=== PATIENT | female | born 1990 | race Caucasian/White ===

== ENCOUNTER 2018-10-06 10:33 | Inpatient (IN) | payer OTHER ==
[2018-10-06] MEDS ORDERED: DINOPROSTONE 10 MG VAGINAL SUPPOSITORY VG ONE (11:00)
[2018-10-06 11:44] VITALS: BMI 30.9
[2018-10-06 13:05] LABS: BASO % 0.4 % (0-2.0); EOS % 0.4 % (0-4.5); HEMATOCRIT 37.8 % (32.4-45.2); HEMOGLOBIN 12.8 GM/dL (10.7-15.3); LYMPH % 27.5 % (8-40); MCH 29.3 pg (25.7-33.7); MCHC 33.8 g/dl (32.0-36.0); MEAN CELL VOLUME 86.6 fl (80-96); MONO % 5.5 % (3.8-10.2); NEUT % 66.2 % (42.8-82.8); PLATELET COUNT 178 K/MM3 (134-434); RBC 4.36 M/mm3 (3.60-5.2); RDW 13.6 % (11.6-15.6); WHITE BLOOD COUNT 7.8 K/mm3 (4.0-10.0)
[2018-10-06 13:21] LABS: INR 0.92 (0.83-1.09); PROTHROMBIN TIME (PATIENT) 10.9 SEC (9.7-13.0)
[2018-10-06 13:24] LABS: ANION GAP 7 MMOL/L (8-16); BLOOD UREA NITROGEN 7 mg/dL (7-18); CALCIUM 9.5 mg/dL (8.5-10.1); CHLORIDE 106 mmol/L (98-107); CO2 23 mmol/L (21-32); CREATININE 0.4 mg/dL (0.55-1.3); GLUCOSE,RANDOM 71 mg/dL (74-106); POTASSIUM 4.1 mmol/L (3.5-5.1); SODIUM 137 mmol/L (136-145)
[2018-10-06 13:24] LABS: ACTIVATED PTT 29.3 SECONDS (25.2-36.5)
[2018-10-06] MEDS ORDERED: PROMETHAZINE HCL 25 MG/1 ML VIAL IVPUSH ONE (14:03)
[2018-10-06] MEDS ORDERED: BUTORPHANOL TARTRATE 2 MG/ML VIAL IVPUSH ONE (14:15)
--- NOTE | 2018-10-06 15:56 | HP ---
Past Medical History - Primary Care Physician PCP:: Octaviano Hardin - Admission Chief Complaint: 41 weeks, oligohydramnions ,for cervidil induction History of Present Illness: 28 yo f g 1p0 41 weeks, referred by MFM for induction of labor for post date and oligo, risks of induction has explained with patient, ulternatives explained History Source: Patient Limitations to Obtaining History: No Limitations - Past Medical History ...: 1 ...Para: 0 ...LMP: 12/21/17 ... Weeks Gestation by Dates: 41.2 ...EDC by Dates: 09/27/18 ...EDC by Sono: 10/02/18 - Past Surgical History Hx Myomectomy: No Hx Transabdominal Cerclage: No - Smoking History Smoking history: Never smoked - Alcohol/Substance Use Hx Alcohol Use: No - Social History Usual Living Arrangement: Yes: With Spouse History of Recent Travel: No Home Medications - Allergies Allergies/Adverse Reactions: Allergies Allergy/AdvReac Type Severity Reaction Status Date / Time No Known Allergies Allergy Verified 10/06/18 11:17 - Home Medications Home Medications: Ambulatory Orders Iron 1 tab PO DAILY 10/06/18 Vitamins (Sjr) - 1 tab PO DAILY 10/06/18 Review of Systems - Review of Systems Constitutional: reports: No Symptoms Eyes: reports: No Symptoms HENT: reports: No Symptoms Neck: reports: No Symptoms Cardiovascular: reports: No Symptoms Respiratory: reports: No Symptoms Gastrointestinal: reports: No Symptoms Genitourinary: reports: No Symptoms Breasts: reports: No Symptoms Reported Musculoskeletal: reports: No Symptoms Integumentary: reports: No Symptoms Neurological: reports: No Symptoms Endocrine: reports: No Symptoms Hematology/Lymphatic: reports: No Symptoms Psychiatric: reports: No Symptoms Physical Exam - Maternity Vital Signs: Vital Signs Temperature 98.4 F 10/06/18 14:00 Pulse Rate 93 H 10/06/18 15:00 Respiratory Rate 20 10/06/18 15:00 Blood Pressure 136/82 10/06/18 15:00 O2 Sat by Pulse Oximetry (%) Constitutional: Yes: Well Nourished, No Distress, Calm Eyes: Yes: WNL, Conjunctiva Clear, EOM Intact HENT: Yes: WNL, Atraumatic, Normocephalic Neck: Yes: WNL, Supple, Trachea Midline Cardiovascular: Yes: WNL, Regular Rate and Rhythm Breast(s): Yes: WNL - Abdominal Exam/OB Fundal Height: 38 Number of Fetuses: Single Presentation: Vertex Contractions: No Intensity: Unaware Monitor Mode: External Heart Rate Location: [facility] Category: I Accelerations: Uniform Decelerations: None - Vaginal Exam/OB Vaginal Bleediing: No Speculum Exam: No Dilatation (cm): 0 Effacement (%): 0 Amniotic Membrane Status: Intact Presentation: Vertex/Position Station: -4 - Physical Exam Musculoskeletal: Yes: WNL Extremities: Yes: WNL Edema: Yes Edema: LLE: Trace, RLE: Trace Deep Tendon Reflex Grade: Normal +2 ...Motor Strength: WNL Psychiatric: Yes: WNL - Labs Lab Results: CBC, BMP 10/06/18 12:25 10/06/18 11:11 Hemorrhage Risk Assessment - Risk Factors Medium Risk Factors: Yes: None High Risk Factors: Yes: None Risk Score: 1 Risk Level: Medium Risk Problem List - Problems (1) Post term at 41 weeks gestation Code(s): O48.0 - POST-TERM ; Z3A.41 - 41 WEEKS GESTATION OF (2) Oligohydramnios Code(s): O41.00X0 - OLIGOHYDRAMNIOS, UNSP TRIMESTER, NOT APPLICABLE OR UNSP Qualifiers: Fetus number: single or unspecified fetus Trimester: third trimester Qualified Code(s): O41.03X0 - Oligohydramnios, third trimester, not applicable or unspecified Assessment/Plan cervidil induction, risks explained , cervidil inserted at 12pm
[2018-10-06] MEDS: DEXTROSE 5%-LACTATED RINGERS 1,000 ML IV SCH ×2 (18:30→22:30)
--- NOTE | 2018-10-07 00:37 | PN ---
Progress Note (short form) - Note Progress Note: cx 2 cm 70 vx -3 , mi, fhr cat 1, regular contraction, cervidil removed Problem List - Problems (1) Post term at 41 weeks gestation Code(s): O48.0 - POST-TERM ; Z3A.41 - 41 WEEKS GESTATION OF (2) Oligohydramnios Code(s): O41.00X0 - OLIGOHYDRAMNIOS, UNSP TRIMESTER, NOT APPLICABLE OR UNSP Qualifiers: Fetus number: single or unspecified fetus Trimester: third trimester Qualified Code(s): O41.03X0 - Oligohydramnios, third trimester, not applicable or unspecified
[2018-10-07] MEDS ORDERED: OXYTOCIN 30 UNITS in 0.9% NS 30 UNIT/500 ML INFUS.BAG IVPB SCH (00:45)
--- NOTE | 2018-10-07 04:53 | PN ---
Progress Note (short form) - Note Progress Note: cx 2 cm 50 vx -3, mi fhr cat 1, irregular contraction , will start pitocin now Problem List - Problems (1) Post term at 41 weeks gestation Code(s): O48.0 - POST-TERM ; Z3A.41 - 41 WEEKS GESTATION OF (2) Oligohydramnios Code(s): O41.00X0 - OLIGOHYDRAMNIOS, UNSP TRIMESTER, NOT APPLICABLE OR UNSP Qualifiers: Fetus number: single or unspecified fetus Trimester: third trimester Qualified Code(s): O41.03X0 - Oligohydramnios, third trimester, not applicable or unspecified
[2018-10-07] MEDS ORDERED: ELECTROLYTE-148 SOLN 500 ML IV ONE (06:40)
[2018-10-07] MEDS ORDERED: CITRIC ACID/SODIUM CITRATE 30 ML UNIT-DOSE CUP PO ONE ×2 (06:45→07:37)
[2018-10-07] MEDS ORDERED: ELECTROLYTE-148 SOLN 1,000 ML IV SCH (07:10)
--- NOTE | 2018-10-07 07:37 | PN ---
Progress Note (short form) - Note Progress Note: cx 2 cm 70 vx -3,no descent, tachy , advised c/s, risks discussed , ulternatives of waiting and cont, induction discussed Problem List - Problems (1) Post term at 41 weeks gestation Code(s): O48.0 - POST-TERM ; Z3A.41 - 41 WEEKS GESTATION OF (2) Oligohydramnios Code(s): O41.00X0 - OLIGOHYDRAMNIOS, UNSP TRIMESTER, NOT APPLICABLE OR UNSP Qualifiers: Fetus number: single or unspecified fetus Trimester: third trimester Qualified Code(s): O41.03X0 - Oligohydramnios, third trimester, not applicable or unspecified
[2018-10-07] MEDS ORDERED: OXYTOCIN 20 UNITS in 0.9% NS 20 UNIT/1,000 ML INFUS.BAG IV ONE ×2 (08:19→09:59)
[2018-10-07] MEDS ORDERED: morphine SULFATE/Preservative Free 0.5 MG/ML (1cc Syringe) ONE (08:25)
[2018-10-07] MEDS ORDERED: ONDANSETRON 4 MG/2 ML VIAL IVPUSH PRN (08:37)
[2018-10-07] MEDS ORDERED: ceFAZolin SODIUM 1 GM VIAL ONE (09:26)
[2018-10-07] MEDS ORDERED: IBUPROFEN 800 MG/8 ML IJ IVPB PRN (09:30)
[2018-10-07] MEDS ORDERED: oxyCODONE HCL 5 MG TABLET PO PRN ×2 (09:30)
[2018-10-07] MEDS ORDERED: OXYTOCIN 20 UNITS in 0.9% NS 20 UNIT/1,000 ML INFUS.BAG IV SCH (09:30)
[2018-10-07] MEDS ORDERED: diphenhydrAMINE HCL 25 MG CAPSULE (FP) PO PRN (09:30)
[2018-10-07] MEDS ORDERED: METHYLERGONOVINE MALEATE 0.2 MG/1 ML AMP IM PRN (09:30)
[2018-10-07] MEDS ORDERED: BENZOCAINE 28 GM HEMORRHOIDAL OINTMENT PR PRN (09:30)
[2018-10-07] MEDS ORDERED: WITCH HAZEL 50% (TUCKS) 40 PAD/JAR PAD TP PRN (09:30)
[2018-10-07] MEDS ORDERED: BENZOCAINE 20% 57 GM BOTTLE TP PRN (09:30)
--- NOTE | 2018-10-07 11:10 | OP ---
DATE OF OPERATION: 10/07/2018 PREOPERATIVE DIAGNOSES: , 41 weeks; oligohydramnios; and induction of labor; failure to dilate; and tachycardia. POSTOPERATIVE DIAGNOSES: , 41 weeks; oligohydramnios; and induction of labor; failure to dilate; and tachycardia. PROCEDURE: Primary low segment transverse section. SURGEON: Enedelia Cooper MD PC MAINTENANCE TECHNICIAN: ANESTHESIA: Spinal. ANESTHESIOLOGIST: Tevin Menchaca MD ESTIMATED BLOOD LOSS: 500 mL. DESCRIPTION OF OPERATION: Patient was taken to the operating room. Under adequate spinal anesthesia, abdomen and perineum were prepped and draped. Pfannenstiel abdominal skin incision was made. Abdominal wall was cut layer by layer. Anterior peritoneum was exposed and incised. Upon entering the abdominal cavity, lower uterine segment was identified and uterovesical fold of peritoneum established. Bladder was pushed down. Then, with the lower blade of the Jorden retractor in the pelvis, a low transverse uterine incision was made. Incision extended laterally. Amniotic sac was entered. Light meconium amniotic fluid noticed. Head delivered. Nasopharynx was suctioned, and a live baby was delivered without any difficulty. Placenta was delivered manually. Uterine cavity was cleaned of all remaining tissue. Uterine incision was closed in 2 layers, first layer with 0 Biosyn continuous suture, the second layer with 0 Biosyn imbricating the first layer. Bladder flap was closed with 0 Biosyn continuous suture. Both tubes and ovaries were checked, were normal. No active bleeding was seen. All the lap pads, sponge, and instrument counts were correct. Then, peritoneum was closed with 0 Biosyn continuous suture. Muscles were brought together with interrupted sutures of 0 Biosyn. Fascia was closed with 0 Biosyn continuous suture, subcutaneous fat with interrupted suture of 0 Biosyn, and the skin was closed with 4-0 Biosyn subcuticular continuous suture. Patient tolerated the procedure well, left the OR in good condition. ENEDELIA COOPER M.D. /[id number]
[2018-10-07] MEDS: CEFAZOLIN 1 GM/D5W 1 GM/50 ML BAG IVPB SCH (17:11)
[2018-10-07] MEDS ORDERED: DEXTROSE 5%-LACTATED RINGERS 1,000 ML IV SCH (17:30)
[2018-10-08] MEDS: CEFAZOLIN 1 GM/D5W 1 GM/50 ML BAG IVPB SCH (01:18)
[2018-10-08 08:24] LABS: BASO % 0.3 % (0-2.0); EOS % 0.4 % (0-4.5); HEMATOCRIT 33.3 % (32.4-45.2); HEMOGLOBIN 11.3 GM/dL (10.7-15.3); LYMPH % 22.4 % (8-40); MCH 29.1 pg (25.7-33.7); MEAN CELL VOLUME 85.8 fl (80-96); MEAN PLT VOLUME 10.4 fl (7.5-11.1); MONO % 5.7 % (3.8-10.2); NEUT % 71.2 % (42.8-82.8); PLATELET COUNT 170 K/MM3 (134-434); RBC 3.88 M/mm3 (3.60-5.2); RDW 13.4 % (11.6-15.6); WHITE BLOOD COUNT 8.4 K/mm3 (4.0-10.0)
--- NOTE | 2018-10-08 08:41 | PN ---
Progress Note (short form) - Note Progress Note: Pt is POD1 s/p csection with spinal and intrathecal duramorph. Pt has not ambulated yet, but currently has no FERNANDO, no back pain, and incisional pain is well controlled. No apparent anesthetic issues/complications noted.
[2018-10-08] MEDS: ENOXAPARIN NA (PORCINE) 40 MG/0.4 ML DISP.SYRIN SQ SCH (09:22)
[2018-10-08] MEDS ORDERED: BISACODYL 10 MG SUPP.RECT RC PRN (09:30)
[2018-10-08] MEDS: SIMETHICONE 80 MG TAB.CHEW (FP) PO PRN ×2 (13:30→18:48)
[2018-10-08] MEDS: ACETAMINOPHEN 325 MG TABLET (FP) PO PRN ×2 (13:30→18:49)
[2018-10-08] MEDS: IBUPROFEN 600 MG TABLET (FP) PO PRN ×2 (13:30→18:48)
--- NOTE | 2018-10-08 16:54 | PN ---
Progress Note (short form) - Note Progress Note: pod 1, doing well, ambulating, no c/o CBC, BMP 10/08/18 07:20 10/06/18 11:11 Last Vital Signs Temp Pulse Resp BP Pulse Ox 98.4 F 92 H 20 106/64 100 10/08/18 08:01 10/08/18 08:01 10/08/18 09:00 10/08/18 08:01 10/07/18 21:00 abdomen soft, no distesion, no cva incision dry, clean no calf tenderness plan ambulate, advance diet pain management Problem List - Problems (1) Post term at 41 weeks gestation Code(s): O48.0 - POST-TERM ; Z3A.41 - 41 WEEKS GESTATION OF (2) Oligohydramnios Code(s): O41.00X0 - OLIGOHYDRAMNIOS, UNSP TRIMESTER, NOT APPLICABLE OR UNSP Qualifiers: Fetus number: single or unspecified fetus Trimester: third trimester Qualified Code(s): O41.03X0 - Oligohydramnios, third trimester, not applicable or unspecified
[2018-10-09] MEDS: IBUPROFEN 600 MG TABLET (FP) PO PRN ×4 (00:15→20:51)
[2018-10-09] MEDS: ACETAMINOPHEN 325 MG TABLET (FP) PO PRN ×4 (00:15→20:50)
[2018-10-09] MEDS: SIMETHICONE 80 MG TAB.CHEW (FP) PO PRN ×3 (00:15→20:50)
--- NOTE | 2018-10-09 07:56 | PN ---
Progress Note (short form) - Note Progress Note: pod 2, s/p c/s . doing well, ambulating, voids ok CBC, BMP 10/08/18 07:20 10/06/18 11:11 Last Vital Signs Temp Pulse Resp BP Pulse Ox 97.8 F 85 18 116/78 100 10/08/18 22:00 10/08/18 22:00 10/08/18 22:00 10/08/18 22:00 10/07/18 21:00 abdomen soft, no distension, no cva incision dry, clean no calf tenderness no excess vaginal bleeding plan ambulate , cbc Problem List - Problems (1) Post term at 41 weeks gestation Code(s): O48.0 - POST-TERM ; Z3A.41 - 41 WEEKS GESTATION OF (2) Oligohydramnios Code(s): O41.00X0 - OLIGOHYDRAMNIOS, UNSP TRIMESTER, NOT APPLICABLE OR UNSP Qualifiers: Fetus number: single or unspecified fetus Trimester: third trimester Qualified Code(s): O41.03X0 - Oligohydramnios, third trimester, not applicable or unspecified
[2018-10-09] MEDS: ENOXAPARIN NA (PORCINE) 40 MG/0.4 ML DISP.SYRIN SQ SCH (10:22)
--- NOTE | 2018-10-09 11:25 | PN ---
Progress Note (short form) - Note Progress Note: On 10.07.[address] Israel in C/section throughout its entirety JR
[2018-10-09] MEDS ORDERED: SENNOSIDES/DOCUSATE COMBO (SENNA PLUS) TABLET (UD) PO PRN (22:00)
[2018-10-10] MEDS: SIMETHICONE 80 MG TAB.CHEW (FP) PO PRN (07:32)
[2018-10-10] MEDS: IBUPROFEN 600 MG TABLET (FP) PO PRN (07:33)
[2018-10-10] MEDS: ACETAMINOPHEN 325 MG TABLET (FP) PO PRN (07:33)
[2018-10-10 07:46] LABS: BASO % 0.4 % (0-2.0); EOS % 1.2 % (0-4.5); HEMATOCRIT 34.4 % (32.4-45.2); HEMOGLOBIN 11.6 GM/dL (10.7-15.3); LYMPH % 17.8 % (8-40); MCH 29.1 pg (25.7-33.7); MCHC 33.7 g/dl (32.0-36.0); MEAN CELL VOLUME 86.4 fl (80-96); MONO % 4.2 % (3.8-10.2); NEUT % 76.4 % (42.8-82.8); PLATELET COUNT 198 K/MM3 (134-434); RBC 3.98 M/mm3 (3.60-5.2); RDW 13.3 % (11.6-15.6); WHITE BLOOD COUNT 9.4 K/mm3 (4.0-10.0)
[2018-10-10 08:26] VITALS: BP 134/86; PULSE 99; TEMP 98.4
[2018-10-10] MEDS: ENOXAPARIN NA (PORCINE) 40 MG/0.4 ML DISP.SYRIN SQ SCH (09:23)
--- NOTE | 2018-10-10 10:10 | DS ---
Physical Exam-COOKY PACKER Vital Signs: Vital Signs Temperature 98.4 F 10/10/18 08:24 Pulse Rate 99 H 10/10/18 08:24 Respiratory Rate 20 10/10/18 08:24 Blood Pressure 134/86 10/10/18 08:24 O2 Sat by Pulse Oximetry (%) 100 10/07/18 21:00 Constitutional: Yes: Well Nourished Eyes: Yes: Conjunctiva Clear HENT: Yes: Atraumatic Neck: Yes: Supple Cardiovascular: Yes: Regular Rate and Rhythm Respiratory: Yes: Regular Gastrointestinal: Yes: Normal Bowel Sounds Renal/: Yes: WNL Pelvis: Yes: WNL External Genitalia: Yes: Normal Vaginal Exam: Yes: Normal Cervix: Yes: Normal Uterus: Yes: Firm Wound/Incision: Yes: Well Approximated Neurological: Yes: Alert, Oriented Psychiatric: Yes: Alert, Oriented Labs: CBC, BMP 10/10/18 06:30 10/06/18 11:11 Delivery - Delivery Type of Anesthesia: Spinal Episiotomy/Laceration: None EBL (cc): 500 Delivery, Single - Stages of Labor Date 1st Stage Initiatied: 10/07/18 Time 1st Stage Initiated: 05:00 Date of Delivery: 10/07/18 Time of Delivery: 08:53 Time Placenta Delivered: 08:54 - Condition of Milk Treater/Rolling Mill Operator Present: Yes Name: Juan M Lawrence Infant Gender: Female Weight: 7 lb 13 oz Position: Right, OT Total Hours ROM (Hrs/Mins): 0/2 - 1 Minute Total Score: 9 5 Minutes Total Score: 9 - [place] Feeding Plan Initial Plan: Elected not to breastfeed exclusively throughout hospitalization Discharge Summary Reason For Visit: INDUCTION OF LABOR Current Active Problems Oligohydramnios (Acute) Post term at 41 weeks gestation (Acute) Status post section (Acute) Procedures: Principal: Primary Hospital Course: Routine post op care Condition: Good - Instructions Diet, Activity, Other Instructions: return to clinic in 1 week for incision check and 6 weeks for check. call [facility] for appointment. [phone] Disposition: HOME - Home Medications Comprehensive Discharge Medication List: Ambulatory Orders Iron 1 tab PO DAILY 10/06/18 Vitamins (Sjr) - 1 tab PO DAILY 10/06/18
--- NOTE | 2018-10-12 09:30 | PATH ---
Surgical Pathology Report Patient Name: NACHO PINO [facility] [place]. Rec. #: [id number] /Age/Gender: 1990 (Age: 28) / F Account: [id number] Location: [facility] OBS/FORESTER SILVICULTURE Taken: 10/07/2018 Received: 10/09/2018 Reported: 10/12/2018 Physicians: Octaviano Hardin M.D. Specimen(s) Received PLACENTA Clinical History , marginal cord insertion, postdates, oligohydramnios, tachycardia FTP Final Diagnosis PLACENTA: THIRD TRIMESTER PLACENTA. TRIVASCULAR CORD. MEMBRANES WITH NO DIAGNOSTIC ABNORMALITIES. Electronically Signed George Frances M.D. Gross Description The specimen is received fresh labeled placenta and is a 436 gram, 19.0 x 14.0 x 3.1 cm. placenta with attached membranes and umbilical cord. The attached membranes are jeffers, translucent with focal opacities and insert marginally. The umbilical cord measures 19 cm. in length and averages 1 cm. in diameter. The cord inserts at the margin. No true knots or strictures are identified. Cut surface of the umbilical cord reveals 3 vessels. The surface is wilde-blue with minimal fibrin deposition and appropriate caliber vessels. The maternal surface is red-brown with focal defects. Sectioning reveals red-brown, spongy parenchyma. No lesions are identified. [employer] Teacher sections are submitted in three cassettes as follows: 1- membrane rolls and umbilical cord; 2-3- full thickness sections of placenta. /10/10/2018 saudi10/10/2018
== END 2018-10-10 13:40 | disposition home or self-care (01) | DRG 540 ==
LOC: JLDR 10:33 → J3W 10-07 11:15
PROVIDERS: ADMIT Obstetrics & Gynecology; ATTEND Obstetrics & Gynecology
PROC: 3E0P7VZ Introduction of Hormone into Female Reproductive, Via Natural or Artificial Opening (ICD-10-PCS; 2018-10-06)
PROC: 10D00Z1 Extraction of Products of Conception, Low, Open Approach (ICD-10-PCS; principal; 2018-10-07)
DX: O48.0 Post-term pregnancy (principal); Z3A.41 41 weeks gestation of pregnancy; O41.03X0 Oligohydramnios, third trimester, not applicable or unspecified; O76 Abnormality in fetal heart rate and rhythm complicating labor and delivery; O62.0 Primary inadequate contractions; Z37.0 Single live birth
CPT/HCPCS: 36415; 36600; 80048; 82803; 85025; 85610; 85730; 86593; 86850; 86900; 86901; 88307-TC

== ENCOUNTER 2020-08-21 13:45 | Inpatient (IN) | payer OTHER ==
[2020-08-21] MEDS: ELECTROLYTE-148 SOLN 1,000 ML IV SCH (14:30)
[2020-08-21] MEDS ORDERED: CITRIC ACID/SODIUM CITRATE 30 ML UNIT-DOSE CUP PO ONE (14:45)
[2020-08-21 15:04] VITALS: BMI 32.3
[2020-08-21] MEDS ORDERED: ONDANSETRON 4 MG/2 ML VIAL IVPUSH PRN (17:57)
[2020-08-21] MEDS ORDERED: morphine SULFATE/PF 0.5 MG/ML (2cc Syringe - QUVA) SPIN ONE (17:57)
[2020-08-21] MEDS ORDERED: PHENYLEPHRINE HCL 10 MG/1 ML SINGLE DOSE VIAL ONE (18:08)
[2020-08-21] MEDS ORDERED: ePHEDrine SULFATE 50 MG/1 ML AMPULE ONE (18:08)
[2020-08-21] MEDS ORDERED: morphine SULFATE/Preservative Free 0.5 MG/ML (1cc Syringe) ONE (20:11)
[2020-08-21] MEDS: ELECTROLYTE-148 SOLN 500 ML IV SCH (20:30)
[2020-08-21] MEDS ORDERED: ceFAZolin SODIUM 1 GM VIAL ONE (20:31)
[2020-08-21] MEDS ORDERED: OXYTOCIN 10 UNITS/ML VIAL ONE ×2 (20:31→20:56)
[2020-08-21] MEDS ORDERED: KETOROLAC TROMETHAMINE 30 MG/1 ML VIAL ONE (20:44)
[2020-08-21] MEDS ORDERED: ONDANSETRON 4 MG/2 ML VIAL ONE (20:44)
[2020-08-21] MEDS ORDERED: diphenhydrAMINE HCL 25 MG CAPSULE (FP) PO PRN (21:15)
[2020-08-21] MEDS ORDERED: METHYLERGONOVINE MALEATE 0.2 MG/1 ML AMP IM PRN (21:15)
[2020-08-21] MEDS ORDERED: BENZOCAINE 28 GM HEMORRHOIDAL OINTMENT PR PRN (21:15)
[2020-08-21] MEDS ORDERED: OXYTOCIN 20 UNITS in 0.9% NS 20 UNIT/1,000 ML INFUS.BAG IV SCH (21:15)
[2020-08-21] MEDS ORDERED: IBUPROFEN 600 MG TABLET (FP) PO PRN (21:15)
[2020-08-21] MEDS ORDERED: oxyCODONE HCL 5 MG TABLET PO PRN ×2 (21:15)
[2020-08-21] MEDS ORDERED: DEXTROSE 5%-LACTATED RINGERS 1,000 ML IV SCH (21:15)
[2020-08-21] MEDS ORDERED: WITCH HAZEL 50% (TUCKS) 40 PAD/JAR PAD TP PRN (21:15)
[2020-08-21] MEDS ORDERED: IBUPROFEN 800 MG/8 ML IJ IVPB PRN (21:15)
[2020-08-21] MEDS ORDERED: BENZOCAINE 20% 57 GM BOTTLE TP PRN (21:15)
[2020-08-21] MEDS ORDERED: ACETAMINOPHEN 325 MG TABLET (FP) PO PRN (21:17)
[2020-08-22] MEDS ORDERED: OXYTOCIN 20 UNITS in 0.9% NS 20 UNIT/1,000 ML INFUS.BAG IV ONE (02:05)
[2020-08-22] MEDS: CEFAZOLIN 1 GM/D5W 1 GM/50 ML BAG IVPB SCH ×2 (02:59→09:05)
[2020-08-22 08:48] LABS: BASO % 0.6 % (0-2.0); EOS % 0.6 % (0-4.5); HEMATOCRIT 30.9 % (32.4-45.2); HEMOGLOBIN 10.5 GM/dL (10.7-15.3); LYMPH % 30.2 % (8-40); MCH 27.3 pg (25.7-33.7); MCHC 33.8 g/dl (32.0-36.0); MEAN CELL VOLUME 80.9 fl (80-96); MEAN PLT VOLUME 10.1 fl (7.5-11.1); MONO % 6.2 % (3.8-10.2); NEUT % 62.4 % (42.8-82.8); PLATELET COUNT 163 K/MM3 (134-434); RBC 3.82 M/mm3 (3.60-5.2); RDW 15.2 % (11.6-15.6); WHITE BLOOD COUNT 8.2 K/mm3 (4.0-10.0)
[2020-08-22] MEDS: ENOXAPARIN NA (PORCINE) 40 MG/0.4 ML DISP.SYRIN SQ SCH (09:08)
[2020-08-22] MEDS: ACETAMINOPHEN 325 MG TABLET (FP) PO PRN ×2 (17:03→22:54)
[2020-08-22] MEDS: IBUPROFEN 600 MG TABLET (FP) PO PRN ×2 (17:04→22:55)
[2020-08-22] MEDS: ELECTROLYTE-148 SOLN 1,000 ML IV SCH (19:06)
[2020-08-22] MEDS: ELECTROLYTE-148 SOLN 500 ML IV SCH (19:06)
[2020-08-22] MEDS ORDERED: BISACODYL 10 MG SUPP.RECT PR PRN (21:15)
[2020-08-22] MEDS: SIMETHICONE 80 MG TAB.CHEW (FP) PO PRN (22:55)
[2020-08-23] MEDS: ACETAMINOPHEN 325 MG TABLET (FP) PO PRN ×4 (07:36→21:49)
[2020-08-23] MEDS: SIMETHICONE 80 MG TAB.CHEW (FP) PO PRN ×3 (07:36→17:19)
[2020-08-23] MEDS: IBUPROFEN 600 MG TABLET (FP) PO PRN ×4 (07:36→21:49)
[2020-08-23] MEDS: ENOXAPARIN NA (PORCINE) 40 MG/0.4 ML DISP.SYRIN SQ SCH (10:11)
[2020-08-23 21:45] VITALS: TEMP 97.9
[2020-08-23] MEDS ORDERED: SENNOSIDES/DOCUSATE COMBO (SENNA PLUS) TABLET (UD) PO PRN (22:00)
[2020-08-24] MEDS: IBUPROFEN 600 MG TABLET (FP) PO PRN ×2 (02:30→07:24)
[2020-08-24] MEDS: ACETAMINOPHEN 325 MG TABLET (FP) PO PRN ×2 (02:30→07:24)
[2020-08-24] MEDS: SIMETHICONE 80 MG TAB.CHEW (FP) PO PRN (07:24)
[2020-08-24 08:54] LABS: BASO % 0.4 % (0-2.0); EOS % 1.2 % (0-4.5); HEMATOCRIT 29.5 % (32.4-45.2); HEMOGLOBIN 9.7 GM/dL (10.7-15.3); LYMPH % 31.6 % (8-40); MCH 26.8 pg (25.7-33.7); MCHC 32.8 g/dl (32.0-36.0); MEAN CELL VOLUME 81.5 fl (80-96); MEAN PLT VOLUME 10.5 fl (7.5-11.1); NEUT % 61.8 % (42.8-82.8); PLATELET COUNT 172 K/MM3 (134-434); RBC 3.62 M/mm3 (3.60-5.2); RDW 15.3 % (11.6-15.6); WHITE BLOOD COUNT 7.8 K/mm3 (4.0-10.0)
[2020-08-24] MEDS: ENOXAPARIN NA (PORCINE) 40 MG/0.4 ML DISP.SYRIN SQ SCH (09:29)
[2020-08-24 09:56] VITALS: BP 119/73; PULSE 82
== END 2020-08-24 12:05 | disposition home or self-care (01) | DRG 540 ==
LOC: JLDR 13:45 → J3W 08-22 02:11
PROVIDERS: ADMIT Obstetrics & Gynecology; ATTEND Obstetrics & Gynecology
PROC: 10D00Z1 Extraction of Products of Conception, Low, Open Approach (ICD-10-PCS; principal; 2020-08-21)
DX: O34.211 Maternal care for low transverse scar from previous cesarean delivery (principal); Z3A.39 39 weeks gestation of pregnancy; Z37.0 Single live birth
CPT/HCPCS: 36415; 85025; 88307-TC